=== PATIENT | female | born 1995 | race Caucasian/White ===

== ENCOUNTER 2016-08-29 23:11 | Emergency (ER) | payer OTHER ==
[~2016-08-29] VITALS: Ht 167.6 cm; Wt 62.3 kg
[2016-08-29 23:20] VITALS: BP 112/74; PULSE 81; RESP 16; TEMP 98.6; O2SAT 99
[2016-08-30] MEDS ORDERED: CETIRIZINE HCL 10 MG TAB PO ONE (00:15)
[2016-08-30] MEDS ORDERED: CEPHALEXIN MONOHYDRATE 500 MG CAP PO ONE (00:15)
[2016-08-30] MEDS ORDERED: RANITIDINE HCL 150 MG TAB PO ONE (00:15)
[2016-08-30] MEDS ORDERED: CEPH-460 PO (00:17)
[2016-08-30] MEDS ORDERED: MEDR4PAK PO (00:17)
--- NOTE | 2016-08-30 00:18 | PD ---
HPI Chief Complaint: Bite or Sting Time Seen by Provider: 00:10 Travel History International Travel<30 days: No Contact w/Intl Traveler<30days: No Traveled to known affect area: No History of Present Illness HPI 20-year-old female presents to the emergency department for complaint of allergic reaction to the left foot. According to the patient yesterday evening she was bitten by an ant on her left foot and presents with 2 papular lesions to the dorsum of the left foot overlying the fifth metatarsal distribution of the foot. No pustule no vesicle. There is erythema over the dorsum with focal swelling. Patient denies developing any generalized urticaria lip tongue or throat swelling. No fever or chills no nausea or vomiting no palpitations no near-syncope or syncope. Patient states her left leg is aches since the insect bite. No swelling of the lower extremity except for that confined to the dorsum of the left foot. Patient reports immunizations are current. 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 Patient did use topical hydrocortisone without relief. PFSH Past Medical History Narrative Medical Negative past medical history negative surgical history no tobacco use or alcohol use nursing notes reviewed Medical History: Denies Significant Hx Diminished Hearing: No Tetanus Vaccination: Unknown Influenza Vaccination: No ?: Not LMP: 08/17/16 Past Surgical History Surgical History: No Previous Surgery Social History Alcohol Use: No Tobacco Use: No Substance Use: No Allergies-Medications (Allergen,Severity, Reaction): Coded Allergies: No Known Allergies (Unverified , 08/29/16) Reported Meds & Prescriptions Reported Meds & Active Scripts Active Keflex (Cephalexin) 500 Mg Cap 500 Mg PO Q6H 7 Days Medrol Dosepak (Methylprednisolone) 4 Mg Dspk 4 Mg PO DIRECTED Per Pharmacist direction Review of Systems Except as stated in HPI: all other systems reviewed are Neg General / Constitutional: No: Fever, Chills HENT: No: Sore Throat, Congestion Cardiovascular: No: Chest Pain or Discomfort Respiratory: No: Shortness of Breath Gastrointestinal: No: Nausea, Vomiting, Diarrhea, Abdominal Pain Genitourinary: No: Dysuria Musculoskeletal: Positive: Myalgias, Arthralgias, Edema, Pain (left foot left foot), No: Limited ROM Skin: Positive Rash (left foot), Positive Itching, No Hives Neurologic: No: Weakness Psychiatric: No: Anxiety Hematologic/Lymphatic: No: Easy Bruising Physical Exam Narrative GENERAL: Well-developed well-nourished female in no acute distress no respiratory distress; no hoarseness no stridor. SKIN: Warm and dry. No urticaria no vesicles no pustules no petechia no purpura HEAD: Normocephalic. EYES: No scleral icterus. No injection or drainage. NECK: Supple, trachea midline. No JVD or lymphadenopathy. CARDIOVASCULAR: Regular rate and rhythm without murmurs, gallops, or rubs. RESPIRATORY: Breath sounds equal bilaterally. No accessory muscle use. GASTROINTESTINAL: Abdomen soft, non-tender, nondistended. MUSCULOSKELETAL: No cyanosis, or edema. Attention left foot dorsal aspect erythema mild increased warmth 2 papular lesions without pustules vesicles or puncture wounds no urticaria capillary refill brisk and less than 2 seconds per digit dorsalis pedis pulse 2+ to palpation no ankle edema of lower extremity without edema or tenderness. No ascending erythema. BACK: Nontender without obvious deformity. No CVA tenderness. Data Data Last Documented VS Vital Signs Date Time Temp Pulse Resp B/P Pulse Ox O2 Delivery O2 Flow Rate FiO2 08/29/16 23:20 98.6 81 16 112/74 99 Orders Ranitidine (Zantac) (08/30/16 00:15) Cetirizine (Zyrtec) (08/30/16 00:15) Cephalexin (Keflex) (08/30/16 00:15) Ed Urine Pregnancytest Poc (08/30/16 00:18) Famotidine (Pepcid) (08/30/16 00:30) [facility] Medical Decision Making Medical Screen Exam Complete: Yes Emergency Medical Condition: Yes Medical Record Reviewed: Yes Interpretation(s) poc hcg: negative Differential Diagnosis Cellulitis focal allergic reaction contact dermatitis Narrative Course Patient presents with focal area of allergic reaction and focal cellulitis. Patient administered Zyrtec 10 mg by mouth Zantac 300 mg by mouth and Keflex 500 mg by mouth. Patient no respiratory distress appears to have had a focal allergic reaction with secondary cellulitic changes. Patient is stable for outpatient management and follow-up with her primary care provider. Diagnosis Primary Impression: Cellulitis of left foot Additional Impression: Allergic reaction Qualified Code: T78.40XA - Allergic reaction, initial encounter Referrals: Primary Care Physician call for appointment Patient Instructions: General Instructions Departure Forms: Tests/Procedures, Work Release Special Instructions: no work x 2 days Additional Instructions: Elevate left foot Take medications as prescribed Follow-up with primary care provider Take Zyrtec 10 mg daily for allergic reaction or Benadryl 25-50 mg every 4-6 hours as needed for allergic reaction Take Zantac 300 mg daily for 7 days for allergic reaction or [id number] Pepcid Complete course of antibiotic as prescribed Complete course of steroid as prescribed Take acetaminophen/Tylenol as needed for fever 100.4F or greater Return to the emergency department for a concerns or change in condition Med/Other Pt SpecificInfo: Prescription(s) given Scripts Cephalexin (Keflex)500 Mg [id number] Mg PO Q6H 7 Days Ref 0 Prov:Melissa Escobar MD 08/30/16 Methylprednisolone Dosepak (Medrol Dosepak)4 Mg Dspk4 Mg PO DIRECTED #1 DSPK Ref 0 Per Pharmacist direction Prov:Melissa Escobar MD 08/30/16 Disposition: 01 DISCHARGE HOME Condition: Stable Melissa Escobar MD Aug 30, 2016 00:18
[2016-08-30] MEDS ORDERED: FAMOTIDINE 20 MG TAB PO ONE (00:30)
[2016-08-30 01:26] VITALS: BP 117/69
== END 2016-08-30 01:27 | disposition home or self-care (01) ==
LOC: PHEFT 23:11
DX: L03.116 Cellulitis of left lower limb (principal); T78.40XA Allergy, unspecified, initial encounter
CPT/HCPCS: 84703; 99282